=== PATIENT | male | born 2000 | race Caucasian/White ===

== ENCOUNTER 2021-09-19 22:39 | Emergency (ER) | payer BC ==
[2021-09-19] MEDS ORDERED: Ibuprofen 200 MG TAB ONE (23:38)
[2021-09-19] MEDS ORDERED: Acetaminophen 500 MG TAB ONE (23:38)
[2021-09-19] MEDS ORDERED: Dexamethasone 10 MG/ML VIAL ONE (23:38)
== END 2021-09-20 00:10 | disposition home or self-care (01) ==
LOC: ERS 22:39
DX: J06.9 Acute upper respiratory infection, unspecified (principal); J02.9 Acute pharyngitis, unspecified
CPT/HCPCS: 93005; J1100

== ENCOUNTER 2021-12-01 15:19 | Emergency (ER) | payer BC, SELFPAY ==
[2021-12-01] MEDS ORDERED: Ibuprofen 800 MG TAB ONE (17:13)
== END 2021-12-01 17:45 | disposition home or self-care (01) ==
LOC: ERS 15:19
DX: M25.561 Pain in right knee (principal)

== ENCOUNTER 2022-02-15 15:35 | Emergency (ER) | payer BC | END 2022-02-15 15:55 | LOC: ERS 15:35 | DX: Z53.21 Procedure and treatment not carried out due to patient leaving prior to being seen by health care provider (principal) ==